=== PATIENT | female | born 1985 | race Caucasian/White ===

== ENCOUNTER 2017-09-30 07:53 | Inpatient (IN) | payer OTHER ==
[2017-09-30 08:30] LABS: AMNISURE (ROM) POSITIVE (NEGATIVE)
[2017-09-30 08:32] LABS: APPEARANCE,URINE SLIGHTLY-CLOUDY; BILIRUBIN,URINE NEGATIVE (NEGATIVE); GLUCOSE, URINE NEGATIVE (NEGATIVE); KETONES,URINE NEGATIVE (NEGATIVE); LEUKOCYTE ESTERASE,URINE NEGATIVE (NEGATIVE); NITRITE,URINE NEGATIVE (NEGATIVE); PROTEIN,URINE NEGATIVE (NEGATIVE); URINE SPECIFIC GRAVITY 1.017; UROBILINOGEN,URINE NEGATIVE mg/dL (<2.0)
[2017-09-30 08:45] LABS: URINE BARBITURATES SCREEN NEGATIVE; URINE METHADONE SCREEN NEGATIVE; URINE OPIATES LOW NEGATIVE; URINE PHENCYCLIDINE SCREEN NEGATIVE
[2017-09-30] MEDS ORDERED: RINGERS SOLUTION,LACTATED 1,000 ML IV ONE (08:46)
[2017-09-30] MEDS ORDERED: RINGERS SOLUTION,LACTATED 1,000 ML IV PRN (08:46)
[2017-09-30] MEDS ORDERED: SODIUM BICARBONATE 8.4% INJ 50 MEQ/50 ML DISP.SYRIN ONE (08:47)
[2017-09-30] MEDS ORDERED: CEFAZOLIN 2 GM/D5W RTU 2 GM/50 ML RTUPB IV ONE ×2 (08:47→09:30)
[2017-09-30] MEDS ORDERED: LIDOCAINE 2%/EPINEPHRINE INJ 20 ML VIAL ONE (08:47)
[2017-09-30] MEDS ORDERED: METOCLOPRAMIDE HCL INJ/PF 10 MG/2 ML SDV ONE (08:47)
[2017-09-30] MEDS ORDERED: CITRIC ACID/SODIUM CITRATE ORAL SOLN 15 ML UDCUP ONE ×2 (08:47)
[2017-09-30] MEDS ORDERED: FAMOTIDINE INJ/PF 20 MG/2 ML SDV IV ONE (08:48)
[2017-09-30] MEDS ORDERED: MISOPROSTOL 0.2 MG TABLET ONE (08:57)
[2017-09-30] MEDS ORDERED: OXYTOCIN/NORMAL SALINE 20 UNIT/1,000 ML RTUINJ ONE (08:57)
[2017-09-30] MEDS ORDERED: LIDOCAINE 1% INJ-PF (10 MG/ML) 30 ML SDV ONE ×2 (08:57→09:04)
[2017-09-30 09:29] LABS: ABSOLUTE EOSINOPHILS # (AUTO) 0.1 10^3/uL (0.0-0.6); ABSOLUTE LYMPHOCYTES (AUTO) 3.4 10^3/uL (0.5-4.7); ABSOLUTE MONOCYTES (AUTO) 0.7 10^3/uL (0.1-1.4); ABSOLUTE NEUT (AUTO) 7.9 10^3/uL (1.7-8.2); BASOPHILS % (AUTO) 0.3 % (0-2); EOSINOPHILS % (AUTO) 0.5 % (0-6); HEMATOCRIT 36.1 % (36.0-47.0); HEMOGLOBIN 12.1 g/dL (12.0-15.5); HGB HCT DIFFERENCE 0.2; LYMPHOCYTES % (AUTO) 27.8 % (13-45); MEAN CORPUSCULAR HEMOGLOBIN 29.1 pg (27.0-33.4); MEAN CORPUSCULAR HGB CONC 33.6 g/dL (32.0-36.0); MEAN CORPUSCULAR VOLUME 87 fl (80-97); MONOCYTES % (AUTO) 6.1 % (3-13); RED BLOOD COUNT 4.17 10^6/uL (3.72-5.28); RED CELL DISTRIBUTION WIDTH 13.6 % (11.5-14.0); SEGMENTED NEUTROPHILS % (AUTO) 65.3 % (42-78); WHITE BLOOD COUNT 12.1 10^3/uL (4.0-10.5)
--- NOTE | 2017-09-30 09:37 | Warning Signs in Babies ---
VOD Warning Signs Datetime Report Generated by N: 09/30/2017 09:37 VOD#608 -Warning Signs in Babies: Viewed with Parent(s)/Family (09/30/2017 09:36:Scarlet Jones RN)
[2017-09-30] MEDS ORDERED: PROMETHAZINE HCL INJ 25 MG/1 ML VIAL IV PRN (11:25)
[2017-09-30] MEDS ORDERED: MEASLES,MUMPS&RUBELLA VACC/PF 0.5 ML VIAL SUBCUT PRN (11:25)
[2017-09-30] MEDS ORDERED: ACETAMINOPHEN WITH CODEINE #3 TABLET PO PRN ×2 (11:25)
[2017-09-30] MEDS ORDERED: DIPH/PERTUSS(ACELL)/TETANUS VAC/PF 0.5 ML SYR (>=10YO) IM PRN (11:25)
[2017-09-30] MEDS ORDERED: DIBUCAINE 1% OINTMENT 28 GM TP PRN (11:25)
[2017-09-30] MEDS ORDERED: GLYCERIN/WITCH HAZEL LEAF 1 EACH MED..PAD TP PRN (11:25)
[2017-09-30] MEDS ORDERED: OXYTOCIN/NORMAL SALINE 20 UNIT/1,000 ML RTUINJ IV PRN (11:25)
[2017-09-30] MEDS ORDERED: ACETAMINOPHEN 650 MG SUPP.RECT PR PRN (11:25)
[2017-09-30] MEDS ORDERED: PROMETHAZINE HCL 25 MG TABLET PO PRN (11:25)
[2017-09-30] MEDS ORDERED: NA PHOS,M-B/NA PHOS,DI-BA (ADULT) 133 ML ENEMA PR PRN (11:25)
[2017-09-30] MEDS ORDERED: DIPHENHYDRAMINE HCL 25 MG CAPSULE PO PRN (11:25)
[2017-09-30] MEDS ORDERED: ZOLPIDEM TARTRATE 5 MG TABLET PO PRN (11:25)
[2017-09-30] MEDS ORDERED: BENZOCAINE/MENTHOL AEROSOL SPRAY 56 ML TOP PRN (11:25)
[2017-09-30] MEDS ORDERED: PROMETHAZINE HCL 25 MG SUPP.RECT PR PRN (11:25)
[2017-09-30] MEDS ORDERED: PSEUDOEPHEDRINE HCL 30 MG TABLET PO PRN (11:25)
[2017-09-30] MEDS ORDERED: MAGNESIUM HYDROXIDE SUSP 30 ML UDCUP PO PRN (11:25)
--- NOTE | 2017-09-30 11:33 | Admission Physical ---
Datetime Report Generated by CPN: 09/30/2017 11:33 CURRENT ADMISSION Chief Complaint: Uterine Contractions Indication for Induction: Term, Intrauterine Admit Impression- Other: S/P of male infant at 0909-precipitous labor and delivery Admit Plan: Admit to Unit ALLERGIES Medication Allergies: No Medication Allergies: No Known Allergies (09/30/2017) Medication Allergies: No Known Allergies (09/24/2017) Medication Allergies: No Known Allergies (08/21/2014) OBSTETRICAL HISTORY EDC: 10/09/2017 00:00 : 3 Para: 1 Term: 1 : 0 SAB: 0 IAB: 0 Ectopic: 0 Livin Cesareans: 1 VBACs: 0 Multiple Births: 0 Gestational Diabetes: No Rh Sensitization: No Incompetent Cervix: No JOSEFINA: No Infertility: No ART Treatment: No Uterine Anomaly: No IUGR: No Hx Previous C/S: Yes Macrosomia: No Hx Loss/Stillborn: No PIH: No Hx : No Placenta Previa/Abruption: No Depression/PP Depression: No PTL/PROM: No Post Hemorrhage: No Current Procedures: Ultrasound Obstetrical History Comments: G1: 2010 C/S at 37 weeks G2: current Obstetrical History Comments: G1- primary c/s in 2009 due to distress and baby stuck in canal G2- 2015 EAB G3- Current SEE RECORDS Alcohol: No Marijuana : No Cocaine: No Other Illicit Drugs: No Cigarettes: Never Smoker. [id number] MEDICAL HISTORY Diabetes: No Blood Transfusion: No Pulmonary Disease (Asthma, TB): No Breast Disease: No Hypertension: No Regional Safety Manager Surgery: No Heart Disease: No Hosp/Surgery: Yes Autoimmune Disorder: No Anesthetic Complications: No Kidney Disease: No Abnormal Pap Smear: No Neuro/Epilepsy: No Psychiatric Disorders: No Other Medical Diseases: No Hepatitis/Liver Disease: No Significant Family History: No Varicosities/Phlebitis: No Trauma/Violence : No Thyroid Dysfunction: No INFECTIOUS HISTORY Gonorrhea: No Genital Herpes: No Chlamydia: No Tuberculosis: No Syphilis: No Hepatitis: No HIV/AIDS Exposure: No Rash or Viral Illness: No HPV: No PHYSICAL EXAM General: Normal HEENT: Normal Neurologic: Normal Thyroid: Deferred Heart: Normal Lungs: Normal Breast: Deferred Back: Normal Abdomen: Normal Genitourinary Exam: Normal Extremities: Normal DTRs: Normal Pelvic Type: Adequate Physical Exam Comments: s/p live male Vital Signs: Reviewed; Within Normal Limits FETUS A EGA: 38.5 Admit Comment: Previous c/s Hx Leep > 10 yrs ago High weight gain GBS positive-antibiotic given at 0852 3 cm on arrival-progressed rapidly to complete, complete, +2 Plan admit for pp care. PLANS FOR LABOR AND DELIVERY Labor and Delivery: None Pain Management: Local Feeding Preference: Formula Benefit of Breast Feed Discussed: Yes Circumcision: Yes INFORMED CONSENT Assignment: Sylvia Torres MD Signature: with User ID: [email or web address] : with User ID: [email or web address] : I personally evaluated and examined the patient in conjunction with the MLP and agree with the assessment, treatment plan and disposition.
[2017-09-30] MEDS: IBUPROFEN 800 MG TABLET PO SCH ×2 (14:28→21:14)
[2017-09-30] MEDS: DOCUSATE SODIUM 100 MG CAPSULE PO SCH (17:12)
[2017-09-30] MEDS: FERROUS SULFATE 325 MG TABLET PO SCH (17:24)
[2017-09-30] MEDS: FAMOTIDINE 20 MG TABLET PO SCH (21:14)
--- NOTE | 2017-09-30 21:38 | Delivery Summary ---
Del Sum A-C Datetime Report Generated by CPN: 09/30/2017 21:38 DELIVERY PERSONNEL DELIVERY PERSONNEL: [id number] Delivery Doctor:: Sylvia Torres MD Nurse Seafood Technology Specialist Certified:: Preethi Kitchen CNM Labor and Delivery Nurse:: Joseline Sy RNprison psychiatrist Nurse:: Scarlet Jones RN Nursery Nurse:: Mere Jenkins RN Curb Supervisor/MIGUE: Elda Keith CST Additional Personnel: : Wally Wood RN MATERNAL INFORMATION Delivery Anesthesia: Pudendal Medications After Delivery: Pitocin Bolus-Please Comment Meds After Delivery Comment: pitocin 20 units in 1000 ml nss open for bolus Estimated Blood Loss (ml): 300 Maternal Complications: Precipitous Labor (<3hrs) Other Maternal Complications: Provider Comments: Patient arrived to floor with c/o contractions and suspected SROM. Contractions noted on monitor however exam was inconclusive and amnisure done. RN called with positive amnisure at 0840 and cvx was 3cm. I asked to have patient admitted and prepared for section including Ancef, GBS positive. At 0900 patient complete/comlete/+1. Labs not done yet. patient offered pudendal and r/b/a reviewed. patient desired Pudendal block performed and uncomplicated. Patient delivered precipitously at 0909. Labs arrived after delivery. VMI delivered SHAHBAZ. No nuchal cord. Shoulders and body delivered without difficulty. Cord doubly clamped and cut and infant to maternal abd for NRP. Placenta delivered intact spontaneously - sent for pathology. No perineal lacerations. Approximately 2x2 cm right labial hematoma noted. Will place major to gravity. FF at U. Good hemostasis. Mother and baby stable upon provider leaving the room. OR team notified patient precipitously delivered and did not need section. LABOR SUMMARY EDC: 10/09/2017 00:00 No. Babies in Womb: 1 Attempted: Yes Labor Anesthesia: None LABOR INFORMATION Reason for Induction: Not Applicable Onset of Labor: 09/30/2017 08:00 Complete Dilatation: 09/30/2017 08:56 Oxytocin: N/A Group B Beta Strep: positive Antibiotics # of Doses: 1 Antibiotics Time of Last Dose: 856 Name of Antibiotic Given: Ancef Steroids Given: None Reason Steroids Not Administered: Not Applicable MEMBRANES Membranes Rupture Method: Spontaneous Rupture of Membranes: 09/30/2017 06:00 Length of Rupture (hr): 3.15 Amniotic Fluid Color: Clear Amniotic Fluid Amount: Moderate Amniotic Fluid Odor: None STAGES OF LABOR Stage 1 hr: 0 Stage 1 min: 56 Stage 2 hr: 0 Stage 2 min: 13 Stage 3 hr: 0 Stage 3 min: 5 Total Time in Labor hr: 1 Total Time in Labor min: 14 VAGINAL DELIVERY Episiotomy: None Laceration #1: None Laceration Extension #1: N/A Laceration Repair: Not Applicable Sponge Count Correct: N/A Sharps Count Correct: N/A CSECTION DELIVERY Primary Indication: N/A Secondary Indication: N/A CSection Incidence: N/A Labor: N/A Elective: N/A CSection Incision: N/A CSection Incision- Other: n/a Other Sterilization Procedure: n/a BABY A INFORMATION Infant Delivery Date/Time: 09/30/2017 09:09 Method of Delivery: Vaginal Born in Route : No : Successful Forceps: N/A Vacuum Extraction: N/A Shoulder Dystocia : No PRESENTATION/POSITION BABY A Presentation: Cephalic Cephalic Presentation: Vertex Vertex Position: Right Occipital Anterior Breech Presentation: N/A PLACENTA INFORMATION BABY A Placenta Delivery Time : 09/30/2017 09:14 Placenta Method of Delivery: Spontaneous Placenta Status: Delivered SCORES BABY A Heart Rate 1 min: >100 bpm Resp Effort 1 min: Good Cry Reflex Irritability 1 min: Cough or Sneeze or Pulls Away Muscle Tone 1 min: Active Motion Color 1 min: Blue/Pale SCORE 1 MIN: 8 Heart Rate 5 min: >100 bpm Resp Effort 5 min: Good Cry Reflex Irritability 5 min: Cough or Sneeze or Pulls Away Muscle Tone 5 min: Active Motion Color 5 min: Body Lindy, Extremities Blue SCORE 5 MIN: 9 INFANT INFORMATION BABY A Gestational Age at Delivery: 38.5 Gestational Status: Early Term- 37- 38.6 Weeks Infant Outcome : Liveborn Condition : Stable Infant Sex: Male IDENTIFICATION BABY A Verification Date/Time: 09/30/2017 09:56 ID Band Number: [id number] Mother's Name Verified: Yes RN Verifying Infant: Timothy Sy RN, Enedelia Patel RN WEIGHT/LENGTH BABY A Birthweight (gm): 3210 Weight (lb): 7 Weight (oz): 1 Length (in): 20.25 Infant Length (cm): 51.44 CORD INFORMATION BABY A No. Cord Vessels: 3 Nuchal Cord : N/A Cord Blood Taken: Yes-For Storage (Mom's Blood type +) Suction: None ASSESSMENT BABY A Complications: None Physical Findings at Delivery: Within Normal Limits Respirations: Appears Normal Skin to Skin: Yes Skin to Skin Time (min): 66 Label Printing Machinist/ALS Called : No Infant Care By: Mere Jenkins RN Transferred To: Remains with Mother BABY B INFORMATION : N/A SIGNATURES Signature: with User ID: [email or web address] : I personally evaluated and examined the patient in conjunction with the MLP and agree with the assessment, treatment plan and disposition.
[2017-10-01] MEDS: IBUPROFEN 800 MG TABLET PO SCH ×3 (05:30→22:40)
[2017-10-01 07:24] LABS: HEMATOCRIT 33.3 % (36.0-47.0); HEMOGLOBIN 11.2 g/dL (12.0-15.5); HGB HCT DIFFERENCE 0.3; MEAN CORPUSCULAR HEMOGLOBIN 28.8 pg (27.0-33.4); MEAN CORPUSCULAR HGB CONC 33.5 g/dL (32.0-36.0); MEAN CORPUSCULAR VOLUME 86 fl (80-97); RED BLOOD COUNT 3.88 10^6/uL (3.72-5.28); RED CELL DISTRIBUTION WIDTH 13.9 % (11.5-14.0); WHITE BLOOD COUNT 12.5 10^3/uL (4.0-10.5)
[2017-10-01] MEDS: FAMOTIDINE 20 MG TABLET PO SCH ×2 (10:01→22:40)
[2017-10-01] MEDS: FERROUS SULFATE 325 MG TABLET PO SCH ×2 (10:01→18:17)
[2017-10-01] MEDS: PRENATAL VITAMIN W DHA CAPSULE PO SCH (10:01)
[2017-10-01] MEDS: SENNOSIDES/DOCUSATE 8.6-50 MG 1 EACH TABLET PO SCH (10:01)
[2017-10-01] MEDS: DOCUSATE SODIUM 100 MG CAPSULE PO SCH ×2 (10:01→18:17)
--- NOTE | 2017-10-01 10:31 | PDOC PROGRESS REPORT ---
Subjective-OB Subjective: Post Delivery Day: 32 year old. Denies any needs at this time. Pt doing well, no complaints. Has not been out of bed, told not to because of FC and labial hematoma. Reports nurse changing her pads. Otherwise feeling good. Bleeding normal, regular diet. Physical Exam (OB) Vital Signs: Temp Pulse Resp BP Pulse Ox 97.4 F 69 15 122/85 98 10/01/17 07:37 10/01/17 07:37 10/01/17 07:37 10/01/17 07:37 10/01/17 07:37 Intake & Output 09/30/17 10/01/17 10/02/17 06:59 06:59 06:59 Intake Total 600 Output Total 1350 Balance -750 Weight 109.35 kg - Lochia Lochia Amount: Scant < 10 ml Lochia Color: Rubra/Red - Abdomen Description: Soft, Round Hernia Present: No Fundal Description: Firm, Midline Fundal Height: u/u - u/2 - Genitourinary Female External exam: Other - Swelling, rt labia, urethra slightly swollen but doesn't appear significant no lacerations/sutures, bleeding normal Objective-Diagnostic Laboratory: 10/01/17 06:50 10/01/17 06:50 WBC 12.5 H RBC 3.88 Hgb 11.2 L Hct 33.3 L MCV 86 MCH 28.8 MCHC 33.5 RDW 13.9 Plt Count 270 Assessment and Plan(PN) - Assessment and Plan (1) Precipitous delivery, delivered (current hospitalization) Is this a current diagnosis for this admission?: Yes (2) Vaginal after , delivered, current hospitalization Is this a current diagnosis for this admission?: Yes Plan: ambulate (3) Hematoma of labia majora Is this a current diagnosis for this admission?: Yes Plan: discontinue FC, encourage pt to get out of bed and void - Time Spent with Patient Time with patient: Less than 15 minutes Medications reviewed and adjusted accordingly: Yes - Disposition Anticipated Discharge: Home Within: within 24 hours
[2017-10-02] MEDS: IBUPROFEN 800 MG TABLET PO SCH (05:30)
[2017-10-02 08:51] VITALS: BP 124/80
[2017-10-02] MEDS: PRENATAL VITAMIN W DHA CAPSULE PO SCH (09:12)
--- NOTE | 2017-10-02 09:12 | PDOC DISCHARGE SUMMARY ---
Final Diagnosis Discharge Date: 10/02/17 - Final Diagnosis (1) Hematoma of labia majora Is this a current diagnosis for this admission?: Yes (2) Precipitous delivery, delivered (current hospitalization) Is this a current diagnosis for this admission?: Yes (3) Vaginal after , delivered, current hospitalization Is this a current diagnosis for this admission?: Yes Discharge Data - Discharge Medication Home Medications: No122/Iron/Folic Acid [ Multi Tablet] 1 tab PO DAILY 09/24/17 Ibuprofen [Motrin 800 mg Tablet] 800 mg PO Q8H PRN 10/02/17 Reason(s) for Admission: Onset of Labor Procedures: NST Intrapartum Procedure(s): Spontaneous Vaginal Delivery - Diagnosis Test Laboratory: Temp Pulse Resp BP Pulse Ox 97.7 F 73 18 124/80 99 10/02/17 08:07 10/02/17 08:07 10/02/17 08:07 10/02/17 08:07 10/02/17 08:07 09/30/17 09/30/17 10/01/17 08:17 09:16 06:50 RBC 4.17 3.88 Hgb 12.1 11.2 L Hct 36.1 33.3 L Urine Opiates Screen NEGATIVE - Discharge information/Instructions Discharge Activity: Balance Activity w/Rest, Pelvic Rest Discharge Diet: Regular Disposition: HOME, SELF-CARE Follow up with: [facility] in: 4, Weeks
[2017-10-02] MEDS: SENNOSIDES/DOCUSATE 8.6-50 MG 1 EACH TABLET PO SCH (09:13)
[2017-10-02] MEDS: FAMOTIDINE 20 MG TABLET PO SCH (09:13)
[2017-10-02] MEDS: FERROUS SULFATE 325 MG TABLET PO SCH (09:13)
[2017-10-02] MEDS: DOCUSATE SODIUM 100 MG CAPSULE PO SCH (09:13)
--- NOTE | 2017-10-02 09:17 | PDOC PROGRESS REPORT ---
Subjective-OB Subjective: Post Delivery Day: 32 year old. Denies any needs at this time bottle feeding. states she is ready to go home. labia tender but pt able to sit up straight in bed. plans to continue ice to perineum. no complaints. Physical Exam (OB) Vital Signs: Temp Pulse Resp BP Pulse Ox 97.7 F 73 18 124/80 99 10/02/17 08:07 10/02/17 08:07 10/02/17 08:07 10/02/17 08:07 10/02/17 08:07 Intake & Output 10/01/17 10/02/17 10/03/17 06:59 06:59 06:59 Intake Total 600 Output Total 1350 750 Balance -750 -750 Weight 109.35 kg - Abdomen Description: Soft, Round Hernia Present: No Fundal Description: Firm, Midline Fundal Height: u/u - u/2 - Genitourinary Lochia: Mild Genitourinary Note: labial hematoma stable. no significant swelling. slightly tender. - Extremities Lower extremities: Anthony's sign - neg Calf: Normal, Nontender Objective-Diagnostic Laboratory: 10/01/17 06:50 Assessment and Plan(PN) - Assessment and Plan (1) Hematoma of labia majora Is this a current diagnosis for this admission?: Yes (2) Precipitous delivery, delivered (current hospitalization) Is this a current diagnosis for this admission?: Yes (3) Vaginal after , delivered, current hospitalization Is this a current diagnosis for this admission?: Yes - Time Spent with Patient Time with patient: Less than 15 minutes Medications reviewed and adjusted accordingly: Yes - Disposition Anticipated Discharge: Home Within: Other - today
== END 2017-10-02 10:28 | disposition home or self-care (01) | DRG 775 ==
LOC: LC 07:53 → LR 08:36 → 2S 11:32
PROVIDERS: ADMIT Student in an Organized Health Care Education/Training Program; ATTEND Student in an Organized Health Care Education/Training Program
PROC: 10E0XZZ Delivery of Products of Conception, External Approach (ICD-10-PCS; principal; 2017-09-30)
PROC: 3E0234Z Introduction of Serum, Toxoid and Vaccine into Muscle, Percutaneous Approach (ICD-10-PCS; 2017-09-30)
DX: O34.211 Maternal care for low transverse scar from previous cesarean delivery (principal); O99.824 Streptococcus B carrier state complicating childbirth; O71.82 Other specified trauma to perineum and vulva; O62.3 Precipitate labor; O26.03 Excessive weight gain in pregnancy, third trimester; Z68.37 Body mass index [BMI] 37.0-37.9, adult; Z3A.38 38 weeks gestation of pregnancy; Z37.0 Single live birth
CPT/HCPCS: 36415; 80307; 81001; 84112; 85025; 85027; 86592; 86850; 86900; 86901; 88307; J0690; J2590; J2765; J3490; S0028

== ENCOUNTER 2018-11-23 04:49 | Outpatient (CLI) | payer BC ==
[2018-11-23 05:14] LABS: APPEARANCE,URINE SLIGHTLY-CLOUDY; BILIRUBIN,URINE NEGATIVE (NEGATIVE); COLOR,URINE YELLOW; GLUCOSE, URINE NEGATIVE (NEGATIVE); KETONES,URINE NEGATIVE (NEGATIVE); LEUKOCYTE ESTERASE,URINE TRACE (NEGATIVE); NITRITE,URINE NEGATIVE (NEGATIVE); PROTEIN,URINE NEGATIVE (NEGATIVE); URINE SPECIFIC GRAVITY 1.009; UROBILINOGEN,URINE NEGATIVE mg/dL (<2.0)
[2018-11-23 05:29] LABS: URINE AMPHETAMINES SCREEN NEGATIVE; URINE BARBITURATES SCREEN NEGATIVE; URINE BENZODIAZEPINES SCREEN NEGATIVE; URINE COCAINE SCREEN NEGATIVE; URINE MARIJUANA (THC) SCREEN NEGATIVE; URINE METHADONE SCREEN NEGATIVE; URINE PHENCYCLIDINE SCREEN NEGATIVE
[2018-11-23] MEDS ORDERED: HYDROXYZINE PAMOATE 50 MG CAPSULE ONE (07:01)
[2018-11-23] MEDS ORDERED: HYDROXYZINE PAMOATE 50 MG CAPSULE PO ONE (07:04)
--- NOTE | 2018-11-23 09:08 | Non Stress Test Report ---
Non Stress Test Datetime Report Generated by CPN: 11/23/2018 09:07 DEMOGRAPHIC EGA NST: 36.2 INDICATION Indication for Study: Other Indication for Study (NST) Other: LABOR CHECK MONITORING Monitor Explained: Monitor Explained; Test Explained; Patient Verbalized Understanding Time on Monitor: 11/23/2018 05:07 Time off Monitor: 11/23/2018 07:50 NST Duration: 163 NST INTERVENTIONS NST Interventions: PO Hydration; Reposition Patient Physician Notified NST: DR REYNA BABY A: [id number] BABY A Movement : Present Contraction Frequency : IRREG FHR Baseline : 135 Accelerations : 15X15 Decelerations : None Variability : Moderate 6-25bpm NST Review: Meets Criteria for Reactive NST NST Review and Verified By : J.Field RN NST Results: Reactive NST REPORT Report Trigger: Send Report
== END 2018-11-23 08:26 | disposition home or self-care (01) ==
LOC: LC 04:49
PROVIDERS: ATTEND Obstetrics & Gynecology
DX: O36.8390 Maternal care for abnormalities of the fetal heart rate or rhythm, unspecified trimester, not applicable or unspecified (principal)
CPT/HCPCS: 59025; 80307; 81005; 87081

== ENCOUNTER 2018-11-23 10:51 | Inpatient (IN) | payer BC ==
[2018-11-23] MEDS ORDERED: PENICILLIN G POTASSIUM 5,000,000 UNIT in DEXTROSE 5%-WATER 100 ML IV ONE (11:10)
[2018-11-23] MEDS ORDERED: MISOPROSTOL 0.2 MG TABLET ONE (11:12)
[2018-11-23] MEDS ORDERED: LIDOCAINE 1% INJ-PF (10 MG/ML) 30 ML SDV ONE (11:12)
[2018-11-23] MEDS ORDERED: PENICILLIN G-K 5 MILLION UNIT VIAL ONE ×2 (11:13→14:44)
[2018-11-23] MEDS ORDERED: OXYTOCIN/NORMAL SALINE 20 UNIT/1,000 ML RTUINJ ONE (11:13)
[2018-11-23] MEDS: RINGERS SOLUTION,LACTATED 1,000 ML IV PRN ×2 (11:15→15:16)
[2018-11-23] MEDS ORDERED: NORMAL SALINE 250 ML IV PRN (11:26)
[2018-11-23 12:09] LABS: ABSOLUTE LYMPHOCYTES (AUTO) 1.3 10^3/uL (0.5-4.7); ABSOLUTE MONOCYTES (AUTO) 0.4 10^3/uL (0.1-1.4); ABSOLUTE NEUT (AUTO) 10.5 10^3/uL (1.7-8.2); BASOPHILS % (AUTO) 0.1 % (0-2); EOSINOPHILS % (AUTO) 0.1 % (0-6); HEMATOCRIT 34.2 % (36.0-47.0); HEMOGLOBIN 11.5 g/dL (12.0-15.5); LYMPHOCYTES % (AUTO) 10.5 % (13-45); MEAN CORPUSCULAR HEMOGLOBIN 29.2 pg (27.0-33.4); MEAN CORPUSCULAR HGB CONC 33.7 g/dL (32.0-36.0); MEAN CORPUSCULAR VOLUME 87 fl (80-97); MONOCYTES % (AUTO) 2.9 % (3-13); PLATELET COUNT 229 10^3/uL (150-450); RED BLOOD COUNT 3.95 10^6/uL (3.72-5.28); RED CELL DISTRIBUTION WIDTH 15.8 % (11.5-14.0); SEGMENTED NEUTROPHILS % (AUTO) 86.4 % (42-78); TOTAL CELLS COUNTED % (AUTO) 100 %; WHITE BLOOD COUNT 12.2 10^3/uL (4.0-10.5)
[2018-11-23] MEDS ORDERED: EPHEDRINE SULFATE INJ 50 MG/1 ML AMPULE ONE (12:24)
[2018-11-23] MEDS ORDERED: BUPIVACAINE HCL 0.25 % INJ/PF (2.5 MG/1 ML) 30 ML VIAL ONE (12:25)
[2018-11-23] MEDS ORDERED: LIDOCAINE 1.5%/EPINEPHRINE INJ-PF 30 ML SDV ONE (12:25)
[2018-11-23] MEDS ORDERED: FENTANYL/BUPIVACAINE/NS/PF 300 MCG/150 ML RTUINJ EPI ONE (12:25)
--- NOTE | 2018-11-23 12:32 | Admission Physical ---
Datetime Report Generated by CPN: 11/23/2018 12:32 CURRENT ADMISSION Hx Assessment: The History has been Reviewed and is Current Chief Complaint: Uterine Contractions Indication for Induction: Not Applicable Admit Impression : , Intrauterine Admit Plan: Admit to Unit; Initiate Labor Protocol; Initiate Protocol ALLERGIES Medication Allergies: No Medication Allergies: No Known Allergies (11/23/2018) Latex: Latex Allergies Food Allergies: NONE Environmental Allergies: NONE OBSTETRICAL HISTORY EDC: 12/19/2018 00:00 : 4 Para: 2 Term: 2 : 0 SAB: 0 IAB: 1 Ectopic: 0 Livin Cesareans: 1 VBACs: 1 Multiple Births: 0 Gestational Diabetes: Yes Rh Sensitization: No Incompetent Cervix: No JOSEFINA: No Infertility: No ART Treatment: No Uterine Anomaly: No IUGR: No Hx Previous C/S: No Macrosomia: No Hx Loss/Stillborn: No PIH: No Hx : No Placenta Previa/Abruption: No Depression/PP Depression: No PTL/PROM: No Post Hemorrhage: No Current Procedures: Ultrasound Obstetrical History Comments: G1 G2 G3 SEE RECORDS Alcohol: No Marijuana : No Cocaine: No Other Illicit Drugs: No Cigarettes: Never Smoker. [id number] MEDICAL HISTORY Diabetes: Yes Diabetes Type: Gestational Diabetes Blood Transfusion: No Pulmonary Disease (Asthma, TB): No Breast Disease: No Hypertension: No Freight Separator Surgery: No Heart Disease: No Hosp/Surgery: Yes Autoimmune Disorder: No Anesthetic Complications: No Kidney Disease: No Abnormal Pap Smear: No Neuro/Epilepsy: No Psychiatric Disorders: No Other Medical Diseases: No Hepatitis/Liver Disease: No Significant Family History: No Varicosities/Phlebitis: No Trauma/Violence : No Thyroid Dysfunction: No INFECTIOUS HISTORY Gonorrhea: No Genital Herpes: Yes Chlamydia: Yes Tuberculosis: No Syphilis: No Hepatitis: No HIV/AIDS Exposure: No Rash or Viral Illness: No HPV: No Infectious History Comments: Pt states she has nevery had an HSV outbreak history of chlamydia PHYSICAL EXAM General: Normal HEENT: Deferred Neurologic: Normal Thyroid: Deferred Heart: Normal Lungs: Normal Breast: Deferred Back: Normal Abdomen: Normal Genitourinary Exam: Normal Extremities: Abnormal DTRs: Normal Pelvic Type: Adequate Physical Exam Comments: proven to 7lbs 1 oz Vital Signs: Reviewed Details Vital Signs: elevated x1 VAGINAL EXAM Contraction Comments: 2-4 MEMBRANES Membranes: Intact FETUS A EGA: 36.2 Monitoring: External US FHR- Baseline: 135 Variability: Moderate 6-25bpm Accelerations: 10X10 Admit Comment: 33yo @ 36w2d into L_D with contractions that never went away after she was seen here this AM. Pt. is RI, GBS pending (will treat due to GA per protocol), AB positive. Hx is significant for HSV, leep, obesity and delivery x1 with a sucessful 13 months ago. Pt desires to proceed with , consents reviewed and signed. OB postal transportation clerk is Dr. Pulido, informed and in house, anesthesia, lab and peds also notified. Denies current or recent outbreaks, none on exam. No other concerns. Labs have been drawn, pt. sitting for epidural at this time. anticipate . PLANS FOR LABOR AND DELIVERY Labor and Delivery: None Pain Management: Epidural Feeding Preference: Formula Benefit of Breast Feed Discussed: Yes Circumcision: N/A INFORMED CONSENT Assignment: Areli Pulido MD Signature: with User ID: David : with User ID: [email or web address]
[2018-11-23] MEDS ORDERED: PENICILLIN G POTASSIUM 2,500,000 UNIT in DEXTROSE 5%-WATER 50 ML IV SCH (15:11)
[2018-11-23] MEDS ORDERED: DIBUCAINE 1% OINTMENT 28 GM TP PRN (16:53)
[2018-11-23] MEDS ORDERED: PROMETHAZINE HCL INJ 25 MG/1 ML VIAL IV PRN (16:53)
[2018-11-23] MEDS ORDERED: OXYTOCIN/NORMAL SALINE 20 UNIT/1,000 ML RTUINJ IV PRN (16:53)
[2018-11-23] MEDS ORDERED: ACETAMINOPHEN WITH CODEINE #3 TABLET PO PRN ×2 (16:53)
[2018-11-23] MEDS ORDERED: DIPHENHYDRAMINE HCL 25 MG CAPSULE PO PRN (16:53)
[2018-11-23] MEDS ORDERED: PROMETHAZINE HCL 25 MG SUPP.RECT PR PRN (16:53)
[2018-11-23] MEDS ORDERED: NA PHOS,M-B/NA PHOS,DI-BA (ADULT) 133 ML ENEMA PR PRN (16:53)
[2018-11-23] MEDS ORDERED: BENZOCAINE/MENTHOL AEROSOL SPRAY 56 ML TOP PRN (16:53)
[2018-11-23] MEDS ORDERED: MEASLES,MUMPS&RUBELLA VACC/PF 0.5 ML VIAL SUBCUT PRN (16:53)
[2018-11-23] MEDS ORDERED: PROMETHAZINE HCL 25 MG TABLET PO PRN (16:53)
[2018-11-23] MEDS ORDERED: GLYCERIN/WITCH HAZEL LEAF 1 EACH MED..PAD TP PRN (16:53)
[2018-11-23] MEDS ORDERED: ACETAMINOPHEN 325 MG TABLET PO PRN (16:53)
[2018-11-23] MEDS ORDERED: PSEUDOEPHEDRINE HCL 30 MG TABLET PO PRN (16:53)
[2018-11-23] MEDS ORDERED: MAGNESIUM HYDROXIDE SUSP 30 ML UDCUP PO PRN (16:53)
[2018-11-23] MEDS ORDERED: DIPH/PERTUSS(ACELL)/TETANUS VAC/PF 0.5 ML SYR (>=10YO) IM PRN (16:53)
--- NOTE | 2018-11-23 18:46 | Delivery Summary ---
Del Sum A-C Datetime Report Generated by CPN: 11/23/2018 18:46 DELIVERY PERSONNEL DELIVERY PERSONNEL: [id number] Delivery Doctor:: Apple Muhammad CNLigia Labor and Delivery Nurse:: Abbey Graham RN Labor and Delivery Nurse:: DESTINEY Davis Nursery Nurse:: Paulette Broussard RN Student Observers:: María Luna RN, Nurse Resident Lobster Fisherman/INJECTION OPERATOR: Lakia Villatoro CNA II Lobster Fisherman/INJECTION OPERATOR: Katarina Green, ST MATERNAL INFORMATION Delivery Anesthesia: Epidural Medications After Delivery: Pitocin Bolus-Please Comment; Pitocin Drip 20 Units/1000ml NSS Maternal Complications: Other Complication Details: h/o HSV no meds Provider Comments: after second dose of antibiotics, pt allowed to labor down then urge to push increased and pt began pushing and AROM with FSE-large amount of clear fluid present. Pt. continued pushing and with much coaching went on to deliver a viable baby girl in RAFAT presentation. Head delivered through nuchal then body arm and foot cord noted upon delivery of the body. Vigorous respiratory effort and cry spontaneously at . Cord allowed to stop pulsating then clamped x2 and cut by FOB. Placenta delivered spontaneously intact (3vc noted), fundus firm @ u-1 and minimal bleeding. Vaginal and perineal inspection revealed no lacerations. Mother and baby skin to skin and bonding at this time. LABOR SUMMARY EDC: 12/19/2018 00:00 No. Babies in Womb: 1 Attempted: Yes Labor Anesthesia: Epidural LABOR INFORMATION Reason for Induction: Not Applicable; Intrauterine Growth Retardation Onset of Labor: 11/23/2018 09:00 Complete Dilatation: 11/23/2018 14:33 Oxytocin: N/A Group B Beta Strep: UNKNOWN Antibiotics # of Doses: 2 Antibiotics Time of Last Dose: 1515 Name of Antibiotic Given: PENICILLIN G Steroids Given: None Reason Steroids Not Administered: Not Applicable MEMBRANES Membranes Rupture Method: Artificial Rupture of Membranes: 11/23/2018 16:06 Length of Rupture (hr): 0.32 Amniotic Fluid Color: Clear Amniotic Fluid Amount: Moderate Amniotic Fluid Odor: Normal STAGES OF LABOR Stage 1 hr: 5 Stage 1 min: 33 Stage 2 hr: 1 Stage 2 min: 52 Stage 3 hr: 0 Stage 3 min: 7 Total Time in Labor hr: 7 Total Time in Labor min: 32 VAGINAL DELIVERY Episiotomy: None Laceration #1: None Laceration Extension #1: N/A Laceration Repair: Not Applicable Sponge Count Correct: N/A Sharps Count Correct: N/A CSECTION DELIVERY Primary Indication: N/A Secondary Indication: N/A CSection Incidence: N/A Labor: N/A Elective: N/A CSection Incision: N/A BABY A INFORMATION Delivery Date/Time: 11/23/2018 16:25 Method of Delivery: Vaginal Born in Route : No : N/A Forceps: N/A Vacuum Extraction: N/A Shoulder Dystocia : No PRESENTATION/POSITION BABY A Presentation: Cephalic Cephalic Presentation: Vertex Vertex Position: Left Occipital Anterior Breech Presentation: N/A PLACENTA INFORMATION BABY A Placenta Delivery Time : 11/23/2018 16:32 Placenta Method of Delivery: Spontaneous Placenta Status: Delivered SCORES BABY A Heart Rate 1 min: >100 bpm Resp Effort 1 min: Good Cry Reflex Irritability 1 min: Cough or Sneeze or Pulls Away Muscle Tone 1 min: Active Motion Color 1 min: Blue/Pale Resuscitation Effort 1 min: Tactile Stimulation SCORE 1 MIN: 8 Heart Rate 5 min: >100 bpm Resp Effort 5 min: Good Cry Reflex Irritability 5 min: Cough or Sneeze or Pulls Away Muscle Tone 5 min: Active Motion Color 5 min: Body Caroleen, Extremities Blue Resuscitation Effort 5 min: N/A SCORE 5 MIN: 9 Resuscitation Effort 10 min: N/A INFANT INFORMATION BABY A Gestational Age at Delivery: 36.2 Gestational Status: Late - 34- 36.6 Weeks Infant Outcome : Liveborn Infant Condition : Stable Sex: Female IDENTIFICATION BABY A Verification Date/Time: 11/23/2018 16:46 ID Band Number: [id number] Mother's Name Verified: Yes Infant RN Verifying Infant: BL ROULUND, RN Additional Verifying Personnel: A BLANKENBERG, RN WEIGHT/LENGTH BABY A Birthweight (gm): 3595 Weight (lb): 7 Weight (oz): 15 Length (in): 19.75 Length (cm): 50.17 CORD INFORMATION BABY A No. Cord Vessels: 3 Nuchal Cord : Around Neck x1, Loose Cord Blood Taken: Yes-For Storage (Mom's Blood type +) Suction: None ASSESSMENT BABY A Infant Complications: Multiple Variable Decels; Other Complications- Other: VISTARIL THIS AM Physical Findings at Delivery: Within Normal Limits Infant Respirations: Appears Normal Skin to Skin: Yes Residential Tech/ALS Called : No Care By: Peyton Hou RN Transferred To: Remains with Mother BABY B INFORMATION : N/A SIGNATURES Assignment: Areli Pulido MD Signature: with User ID: David : with User ID: David
[2018-11-23] MEDS: DOCUSATE SODIUM 100 MG CAPSULE PO SCH (18:59)
[2018-11-23] MEDS: IBUPROFEN 800 MG TABLET PO SCH (18:59)
[2018-11-23] MEDS: FERROUS SULFATE 325 MG TABLET PO SCH (18:59)
[2018-11-23] MEDS: FAMOTIDINE 20 MG TABLET PO SCH (21:51)
[2018-11-24] MEDS: IBUPROFEN 800 MG TABLET PO SCH ×3 (01:59→18:08)
[2018-11-24 07:01] LABS: HEMATOCRIT 29.6 % (36.0-47.0); HEMOGLOBIN 10.1 g/dL (12.0-15.5); MEAN CORPUSCULAR HEMOGLOBIN 29.8 pg (27.0-33.4); MEAN CORPUSCULAR VOLUME 88 fl (80-97); PLATELET COUNT 206 10^3/uL (150-450); RED BLOOD COUNT 3.38 10^6/uL (3.72-5.28); RED CELL DISTRIBUTION WIDTH 16.2 % (11.5-14.0); WHITE BLOOD COUNT 11.4 10^3/uL (4.0-10.5)
[2018-11-24] MEDS: FERROUS SULFATE 325 MG TABLET PO SCH ×2 (09:41→18:08)
[2018-11-24] MEDS: FAMOTIDINE 20 MG TABLET PO SCH ×2 (09:41→21:38)
[2018-11-24] MEDS: PRENATAL VITAMIN W DHA CAPSULE PO SCH (09:41)
[2018-11-24] MEDS: SENNOSIDES/DOCUSATE 8.6-50 MG 1 EACH TABLET PO SCH (09:42)
[2018-11-24] MEDS: DOCUSATE SODIUM 100 MG CAPSULE PO SCH ×2 (09:42→18:08)
--- NOTE | 2018-11-24 10:26 | PDOC PROGRESS REPORT ---
Subjective-OB Progress Note for:: 11/24/18 - PP Day #1, doing well, bottlefeeding, AB+, Rubella Immune, Hx GDM Physical Exam (OB) Vital Signs: Temp Pulse Resp BP Pulse Ox 97.8 F 84 18 104/60 86 L 11/24/18 08:08 11/24/18 08:08 11/24/18 08:08 11/24/18 08:08 11/24/18 08:08 Intake & Output 11/23/18 11/24/18 11/25/18 06:59 06:59 06:59 Intake Total 502 Balance 502 Weight 114.5 kg - General General Appearance: Appears well, Alert In distress: None - PIH/Pre-Eclampsia DTR's: 1 + Clonus: Negative Headache: Absent Epigastric Pain: No Visual Changes: No - Lochia Lochia Amount: Scant < 10 ml Lochia Color: Rubra/Red - Abdomen Description: Soft, Round Hernia Present: No Fundal Description: Firm, Midline Fundal Height: u/u - u/2 - Respiratory Respiratory Status: No respiratory distress - Abdominal Inspection: Normal Distension: No distension - Genitourinary Genitourinary Note: voiding - Extremities Upper extremity: Normal inspection Lower extremities: Normal inspection - Neurological Cognition: Normal Orientation: AAOx4 - Psychological Associated symptoms: Normal affect, Normal mood - Skin Skin Temperature: Warm Skin Moisture: Dry Objective-Diagnostic Laboratory: 11/24/18 06:48 11/23/18 11/23/18 11/24/18 11:42 11:42 06:48 WBC 12.2 H 11.4 H RBC 3.95 3.38 L Hgb 11.5 L 10.1 L Hct 34.2 L 29.6 L MCV 87 88 MCH 29.2 29.8 MCHC 33.7 34.0 RDW 15.8 H 16.2 H Plt Count 229 206 Seg Neutrophils % 86.4 H Lymphocytes % 10.5 L Monocytes % 2.9 L Eosinophils % 0.1 Basophils % 0.1 Absolute Neutrophils 10.5 H Absolute Lymphocytes 1.3 Absolute Monocytes 0.4 Absolute Eosinophils 0.0 Absolute Basophils 0.0 Blood Type AB POSITIVE Antibody Screen NEGATIVE Assessment and Plan(PN) - Assessment and Plan (1) Normal course Is this a current diagnosis for this admission?: Yes (2) Hematoma of labia majora Is this a current diagnosis for this admission?: Yes (3) Precipitous delivery, delivered (current hospitalization) Is this a current diagnosis for this admission?: Yes (4) Vaginal after , delivered, current hospitalization Is this a current diagnosis for this admission?: Yes - Time Spent with Patient Time with patient: Less than 15 minutes Medications reviewed and adjusted accordingly: Yes - Disposition Anticipated Discharge: Home Within: within 24 hours
[2018-11-25] MEDS: IBUPROFEN 800 MG TABLET PO SCH ×3 (01:18→17:17)
[2018-11-25 08:12] VITALS: BP 115/72
[2018-11-25] MEDS: FAMOTIDINE 20 MG TABLET PO SCH (10:41)
[2018-11-25] MEDS: FERROUS SULFATE 325 MG TABLET PO SCH ×2 (10:41→17:17)
[2018-11-25] MEDS: SENNOSIDES/DOCUSATE 8.6-50 MG 1 EACH TABLET PO SCH (10:41)
[2018-11-25] MEDS: PRENATAL VITAMIN W DHA CAPSULE PO SCH (10:41)
[2018-11-25] MEDS: DOCUSATE SODIUM 100 MG CAPSULE PO SCH ×2 (10:42→17:17)
--- NOTE | 2018-11-25 11:25 | PDOC DISCHARGE SUMMARY ---
Final Diagnosis Discharge Date: 11/25/18 - Final Diagnosis (1) delivery Is this a current diagnosis for this admission?: Yes (2) Precipitous delivery, delivered (current hospitalization) Is this a current diagnosis for this admission?: Yes Discharge Data - Discharge Medication Prescriptions: Ibuprofen [Motrin 800 mg Tablet] 800 mg PO Q8HP PRN #60 tablet PRN Reason: Home Medications: No122/Iron/Folic Acid [ Multi Tablet] 1 tab PO DAILY 09/24/17 Ibuprofen [Motrin 800 mg Tablet] 800 mg PO Q8HP PRN #60 tablet 11/25/18 Reason(s) for Admission: Onset of Labor Procedures: NST Intrapartum Procedure(s): Spontaneous Vaginal Delivery - Diagnosis Test Laboratory: Temp Pulse Resp BP Pulse Ox 98.5 F 82 16 115/72 99 11/25/18 07:33 11/25/18 07:33 11/25/18 07:33 11/25/18 07:33 11/25/18 07:33 11/23/18 11/24/18 11:42 06:48 RBC 3.95 3.38 L Hgb 11.5 L 10.1 L Hct 34.2 L 29.6 L - Discharge information/Instructions Discharge Activity: Balance Activity w/Rest, Pelvic Rest Discharge Diet: Regular Disposition: HOME, SELF-CARE Follow up with: [facility] in: 4, Weeks
== END 2018-11-25 17:28 | disposition home or self-care (01) | DRG 805 ==
LOC: LC 10:51 → LR 11:20 → 2S 18:45
PROVIDERS: ADMIT Obstetrics & Gynecology; ATTEND Obstetrics & Gynecology
PROC: 10E0XZZ Delivery of Products of Conception, External Approach (ICD-10-PCS; principal; 2018-11-23)
PROC: 4A1HXCZ Monitoring of Products of Conception, Cardiac Rate, External Approach (ICD-10-PCS; 2018-11-23)
DX: O69.81X0 Labor and delivery complicated by cord around neck, without compression, not applicable or unspecified (principal); O60.14X0 Preterm labor third trimester with preterm delivery third trimester, not applicable or unspecified; Z37.0 Single live birth; O71.7 Obstetric hematoma of pelvis; O62.3 Precipitate labor; O24.429 Gestational diabetes mellitus in childbirth, unspecified control; O69.2XX0 Labor and delivery complicated by other cord entanglement, with compression, not applicable or unspecified; O76 Abnormality in fetal heart rate and rhythm complicating labor and delivery; Z3A.36 36 weeks gestation of pregnancy; O34.219 Maternal care for unspecified type scar from previous cesarean delivery
CPT/HCPCS: 36415; 85025; 85027; 86592; 86850; 86900; 86901; 86920; J2540; J2590; J3010; J3490